=== PATIENT | male | born 1980 | race Caucasian/White ===

== ENCOUNTER 2019-12-15 15:28 | Emergency (ER) | payer BC, SELFPAY ==
--- NOTE | 2019-12-15 | DI.CT_ITS ---
EXAM: CT CHEST/ABD/PEL W and lumbar spine reconstructions CLINICAL HISTORY: PAIN, S/P FALL WHILE SKIING TECHNIQUE: Images were performed from the clavicles through the ischial tuberosities after 100 cc of Omnipaque 350 IV. COMPARISON: CT LUMBAR SPINE RECONS from 12/15/2019 FINDINGS: There are mild dependent changes at the lung bases. No pneumothorax or displaced rib fracture is see n. The thoracic spine appears intact. The heart and great vessels appear intact. The thoracic spin e and sternum appear intact. There is a compression fracture of the superior endplate L1, mild. The re is no significant retropulsion. The posterior endplates appear intact. No additional spinal frac tures are seen. No pelvic fractures are seen. There is fatty infiltration of the liver. No liver injury is seen. The gallbladder, spleen, pancrea s, adrenals, kidneys and urinary bladder are unremarkable. There is no bowel dilatation, free air, f ree fluid or wall thickening. Aorta is normal in diameter and appears intact. IMPRESSION: Mild, approximally 10 percent, compression fracture of the superior endplate of L1 without significa nt retropulsion. No posterior element involvement.
--- NOTE | 2019-12-15 15:30 | DI.CT_ITS ---
EXAM: CT HEAD CERVICAL SPINE WO CLINICAL HISTORY: pain s/p fall while skiing. TECHNIQUE: Imaging Protocol: Axial computed tomography images with coronal and sagittal reformatted images were created and reviewed Noncontrast COMPARISON: No exams were available for comparison FINDINGS: Head CT Ventricles and Extra axial spaces: Normal in size and morphology for the patient's age. Hemorrhage: None. Cerebral parenchyma: Normal. Midline shift: None. Brainstem/Cerebellum: Normal. Calvarium: Normal. Visualized Paranasal sinuses/Mastoids: Clear. IMPRESSION: Negative head CT. FINDINGS: Cervical Spine CT BONES: Vertebral body heights are maintained. Intervertebral disc spaces are normal. Alignment is nor mal. There is no evidence of acute fracture. SOFT TISSUES: No paraspinal hematoma. The airway appears intact. . IMPRESSION: No acute abnormality. RADIATION DOSE DELIVERED: DATA REPOSITORY: All CT scans at this facility are submitted to the National Radiology Data Registry (NRDR) Dose Index Registry (DIR) with the [employer] ([employer]). RADIATION OPTIMIZATION: All CT scans at this facility use at least one of these dose optimization te chniques: automated exposure control; mA and/or kV adjustment per patient size (includes targeted exa ms where dose is matched to clinical indication); or iterative reconstruction.
--- NOTE | 2019-12-15 15:45 | ED.GENADUL_ITS ---
Discharge Plan Disposition Patient Disposition: HOME Condition: Stable Discharge Details Chief Complaint: Trauma Clinical Impression: Blunt head trauma, Cervical strain, Blunt chest trauma, Blunt abdominal trauma, Closed compression fracture of L1 vertebra Primary Care Provider: Julienne,Local ED Provider: Fitz Thomas Home Meds and New Rx's Prescriptions: New oxycodone 5 mg tablet 5 mg PO Q8H PRN (Reason: pain) Qty: 12 RF: 0 Discharge Instructions Instructions: Vertebral Compression Fracture (ED) Additional Instructions: take 1000mg tylenol and 600mg ibuprofen every 6 hours for pain as needed if you need additional pain relief take 1 oxycodone, do not drink alcohol or drive if you take this medicine if you have severe worsening pain or new worsening pain such as abdominal pain or chest pain return to the emergency department Medical Decision Making 39 yo male with hx of htn and malignant hyperthermia, comes in after he was wearing a helmet skiing and thought he was going over a hill but it was a jump so he went an unknown heigh in the air and landed on his back. Denies loc but has headache, left anterior chest tenderness, left upper abdominal pain and tenderness without guarding and has midline L spine pain without palpable deformiteis or stepoffs and no pain in the extremities. Given mechanism and areas of pain will obtain ct head/c spine and also chest/abd/pelvis with L spine reconstructions pt remains stable, ct's only show L1 mild compression fx. No new pain on exam. Will d/c on pain meds and advised to f/u with pcp when he returns to [place] next week, return precautions given Differential Diagnosis Differential Diagnosis: tbi, rib fracture, ptx, splenic injury, l spine injury Imaging Data Radiologic Study: Attestation: I personally reviewed and interpreted this imaging study as follows: Imaging: CT Scan Radiologist's impression: negative ct head and c spine negative ct thorax ct abdomen and lumbar spine show l1 compression fx Lab Data Lab results reviewed: Yes I reviewed the patient's lab results. HPI General Mode of arrival: EMS . Date/Time Provider Initiated Documentation: 12/15/19 15:41 . Limitations to Documentation: no limitations . Information obtained by: patient . History of Present Illness 39 year old M presents to the emergency department with the chief complaint of back pain, described as moderate, Quality is described as aching, and is localized to the back. Patient started experiencing this hour(s) (1) and it has been constant. No relieving factors improve symptom(s), No exacerbating factors reported . Patient did receive the following treatments prior to arrival, none Related Data Home Medications Medication Instructions Recorded Confirmed oxycodone 5 mg PO Q8H PRN #12 tab 12/15/19 Previous Rx's Medication Instructions Recorded oxycodone 5 mg PO Q8H PRN #12 tab 12/15/19 Review of Systems All systems reviewed & are unremarkable except as noted in HPI and below Constitutional Constitutional: Denies chills, Denies fever(s) and Denies weakness Cardiovascular Cardiovascular: Denies dyspnea Respiratory Respiratory: Denies cough and Denies dyspnea Gastrointestinal Gastrointestinal: Denies nausea and Denies vomiting Musculoskeletal Musculoskeletal: Denies joint swelling Neurologic Neurologic: Denies weakness [facility] Medical History (Updated 12/15/19 @ 17:19 by Fitz Thomas MD) Hypertension (Chronic) Malignant hyperthermia (Acute) Social History Smoking/Tobacco Use Status: Never Alcohol Intake: current Alcohol Intake frequency: a few times a month Substance use type: does not use Do you feel safe at home: Yes Do you feel safe in your relationship?: Yes Exam Const General: no acute distress Orientation: alert HENMT Head: normal to inspection Ears: external ears normal General nose exam: external nose normal Mouth: moist mucous membranes Eyes General: appearance normal, both eyes and all related structures Neck Neck: normal visual inspection Chest Chest: no crepitus and No rash Resp Effort & Inspection: normal respiratory effort and able to speak in complete sentences Cardio Rate: regular rate GI Palpation: soft Skin General skin exam: no rashes or lesions noted Neuro General: alert and oriented x3 Extrem General: normal to inspection Psych Mental Status: mental status grossly normal
[2019-12-15] MEDS: Normal Saline 1,000 ML 1000 ML IV (15:56)
[2019-12-15] MEDS: fentaNYL 100 MCG/2 ML VIAL IVP (15:58)
[2019-12-15 16:00] LABS: Abs Immature Grans 0.11 k/cumm (0.0-0.09); Absolute Basophil Count 0.04 k/cumm (0.0-0.2); Absolute Eosinophil Count 0.13 k/cumm (0.0-0.7); Absolute Lymphocyte Count 3.17 k/cumm (1.2-3.4); Absolute Monocyte Count 1.33 k/cumm (0.11-0.7); Absolute Neutrophil Count 10.12 k/cumm (1.2-6.7); Basophils % 0.3; Eosinophils % 0.9; HCT 47.1 % (40.0-50.0); Immature Grans % 0.7 %; Lymphocytes % 21.3; Mean Corpuscular Hemoglobin 31.3 pg (27.0-33.0); Mean Corpuscular Volume 92.2 fL (80-95); Mean Platelet Volume 9.8 fL (8.0-11.0); Monocytes % 8.9; Neutrophils % 67.9; Platelet Count 287 x1000/uL (130-400); RBC 5.11 m/cumm (4.50-6.00); RBC Distribution Width 13.3 % (11.8-14.1)
[2019-12-15 16:03] VITALS: BP 147/89; PULSE 85; RESP 18; TEMP 36.7; O2SAT 97
[2019-12-15 16:10] LABS: ALT 61 U/L (16-63); AST 43 U/L (15-37); Albumin 4.4 g/dL (3.4-5.0); Alkaline Phosphatase 96 U/L (46-116); BUN 13 mg/dL (7-18); Bilirubin, Total 0.3 mg/dL (0.2-1.0); CREATININE 1.23 mg/dL (0.70-1.30); Calcium 9.3 mg/dL (8.5-10.1); Chloride 106 mmol/L (98-107); Glucose 103 mg/dL (74-106); Lipase 120 U/L (73-393); Magnesium 2.4 mg/dL (1.8-2.4); Potassium 4.1 mmol/L (3.5-5.1); Sodium 143 mmol/L (136-145); Total Protein 7.6 g/dL (6.4-8.2)
[2019-12-15 16:11] LABS: PTT Activated 22.9 sec (21.0-31.4); Prothrombin Time 9.8 sec (9.3-11.0)
[2019-12-15] MEDS: Omnipaque 350 MG/ML 100 ML BTL IJ (16:22)
[2019-12-15] MEDS: Normal Saline - Diluent 50 ML VIAL IV (16:23)
[2019-12-15 16:33] VITALS: BP 139/80; PULSE 102; RESP 16; TEMP 36.1
--- NOTE | 2019-12-15 16:44 | DI.VRAD_ITS ---
PROCEDURE INFORMATION: Exam: CT Head Without Contrast Exam date and time: 12/15/2019 4:10 PM Age: 39 years old Clinical indication: Injury or trauma; Initial encounter; Blunt trauma (contusions or hematomas); Consciousness not specified; Injury date: 12/15/19; Injury details: S/P fall while skiing. TECHNIQUE: Imaging protocol: Computed tomography of the head without contrast. Radiation optimization: All CT scans at this facility use at least one of these dose optimization techniques: automated exposure control; mA and/or kV adjustment per patient size (includes targeted exams where dose is matched to clinical indication); or iterative reconstruction. COMPARISON: No relevant prior studies available. FINDINGS: Brain: No intracranial hemorrhage or extra-axial fluid collection. No evidence of mass effect or midline shift. Etienne-white matter differentiation is intact. Ventricles: No ventriculomegaly. Bones/joints: No acute osseus lesion or fracture. Sinuses: Unremarkable as visualized. Mastoid air cells: Unremarkable. Soft tissues: Unremarkable. IMPRESSION: No acute intracranial pathology. PROCEDURE INFORMATION: Exam: CT Cervical Spine Without Contrast Exam date and time: 12/15/2019 4:10 PM Age: 39 years old Clinical indication: Injury or trauma; Initial encounter; Blunt trauma (contusions or hematomas); Consciousness not specified; Injury date: 12/15/19; Injury details: S/P fall while skiing. TECHNIQUE: Imaging protocol: Computed tomography images of the cervical spine without contrast. Radiation optimization: All CT scans at this facility use at least one of these dose optimization techniques: automated exposure control; mA and/or kV adjustment per patient size (includes targeted exams where dose is matched to clinical indication); or iterative reconstruction. COMPARISON: No relevant prior studies available. FINDINGS: Vertebrae: The cervical lordosis is normal. Vertebral body heights are maintained. No locked or perched facets. No acute cervical spine fracture. The dens is intact. Atlantoaxial intervals are normal. Discs/Spinal canal/Neural foramina: Disc space heights are normal. Soft tissues: Unremarkable. Lungs: Lung apices are clear. IMPRESSION: No acute cervical spine fracture. Dictated and Authenticated by: Bud Reed MD. Ordering:CATHERINE Byrnes MD
--- NOTE | 2019-12-15 16:46 | DI.VRAD_ITS ---
PROCEDURE INFORMATION: Exam: CT Lumbar Spine Without Contrast Exam date and time: 12/15/2019 4:22 PM Age: 39 years old Clinical indication: Low back pain; Patient HX: Fall while skiing TECHNIQUE: Imaging protocol: Computed tomography images of the lumbar spine without contrast. Radiation optimization: All CT scans at this facility use at least one of these dose optimization techniques: automated exposure control; mA and/or kV adjustment per patient size (includes targeted exams where dose is matched to clinical indication); or iterative reconstruction. COMPARISON: No relevant prior studies available. FINDINGS: Vertebrae: Acute mild compression fracture of the superior endplate of L1 with approximately 10% loss of height. No osseous retropulsion. Lumbar lordosis is preserved. No measurable spondylolisthesis. Discs/Spinal canal/Neural foramina: Disc space heights are intact. No significant spinal stenosis. Soft tissues: Unremarkable. IMPRESSION: Acute mild compression fracture of the superior endplate of L1. Dictated and Authenticated by: Bud Reed MD. Ordering:CATHERINE Byrnes MD
--- NOTE | 2019-12-15 16:48 | DI.VRAD_ITS ---
PROCEDURE INFORMATION: Exam: CT Chest With Contrast Exam date and time: 12/15/2019 4:22 PM Age: 39 years old Clinical indication: Chest wall pain; Patient HX: S/P fall while skiing, patient complains of left sided rib pain TECHNIQUE: Imaging protocol: Computed tomography of the chest with intravenous contrast. Radiation optimization: All CT scans at this facility use at least one of these dose optimization techniques: automated exposure control; mA and/or kV adjustment per patient size (includes targeted exams where dose is matched to clinical indication); or iterative reconstruction. Contrast material: OMNIPAQUE 350; Contrast volume: 100 ml; Contrast route: IV; COMPARISON: No relevant prior studies available. FINDINGS: Lungs: Mild bibasilar dependent atelectasis of the lung bases. Pleural space: No pleural effusion or pneumothorax. Heart: Unremarkable. No pericardial effusion. Aorta: Unremarkable. Lymph nodes: No enlarged lymph nodes. Bones/joints: No acute osseus lesion or fracture. Soft tissues: Unremarkable. IMPRESSION: No acute findings in the thorax. PROCEDURE INFORMATION: Exam: CT Abdomen And Pelvis With Contrast Exam date and time: 12/15/2019 4:22 PM Age: 39 years old Clinical indication: Chest wall pain; Patient HX: S/P fall while skiing, patient complains of left sided rib pain TECHNIQUE: Imaging protocol: Computed tomography of the abdomen and pelvis with intravenous contrast. Radiation optimization: All CT scans at this facility use at least one of these dose optimization techniques: automated exposure control; mA and/or kV adjustment per patient size (includes targeted exams where dose is matched to clinical indication); or iterative reconstruction. Contrast material: OMNIPAQUE 350; Contrast volume: 100 ml; Contrast route: IV; COMPARISON: No relevant prior studies available. FINDINGS: Liver: Unremarkable. Gallbladder and bile ducts: Unremarkable. No ductal dilation. Pancreas: Unremarkable. No ductal dilation. Spleen: Unremarkable. Adrenals: Unremarkable. Kidneys and ureters: No hydronephrosis or stones. Stomach and bowel: Stomach is unremarkable. No small bowel obstruction. Large bowel is unremarkable. Appendix: No evidence of appendicitis. Intraperitoneal space: No pneumoperitoneum. No significant fluid collection. Vasculature: Unremarkable. Lymph nodes: No enlarged lymph nodes. Bladder: Unremarkable. Reproductive: Unremarkable as visualized. Bones/joints: Acute mild compression fracture of the superior endplate of L1. Soft tissues: Small fat containing umbilical hernia. Small fat containing right inguinal hernia. IMPRESSION: Acute mild compression fracture of the superior endplate of L1. Dictated and Authenticated by: Bud Reed MD. Ordering:CATHERINE Byrnes MD
[2019-12-15 17:19] VITALS: BP 124/82; PULSE 88; RESP 15; TEMP 36.3; O2SAT 99
[2019-12-15] MEDS: HYDROmorphone 2 MG/ML VIAL 1 MG IVP (17:27)
[2019-12-15] MEDS: Ondansetron O.D.T. 4 MG TABEF PO (18:06)
--- NOTE | 2019-12-15 18:07 | NUR.NOTE ---
Assisted to semi fowlers, pt feeling nauseous and laid back down in bed. MD plascencia, ODT ordered and administered. pt pale. BP 124/78. given apple juice and resting with bed elevated, feet over side of stretcher.
[2019-12-15 18:09] VITALS: BP 128/78; PULSE 87; RESP 14; O2SAT 98
[2019-12-15 18:11] VITALS: BP 128/78; PULSE 87; RESP 14; O2SAT 98
--- NOTE | 2019-12-15 18:47 | NUR.NOTE ---
Assisted to BR in wheelchair, pt voided and ambulated back to room with assist. reports nausea subsided and pt feels better
[2019-12-15 18:52] VITALS: BP 124/78; PULSE 87; RESP 16; O2SAT 98
== END 2019-12-15 18:50 | disposition home or self-care (01) ==
PROVIDERS: Emergency Provider Emergency Medicine
DX: S32.019A Unspecified fracture of first lumbar vertebra, initial encounter for closed fracture (principal); S16.1XXA Strain of muscle, fascia and tendon at neck level, initial encounter; S09.8XXA Other specified injuries of head, initial encounter; S29.8XXA Other specified injuries of thorax, initial encounter; S39.81XA Other specified injuries of abdomen, initial encounter; V00.321A Fall from snow-skis, initial encounter; Y93.23 Activity, snow (alpine) (downhill) skiing, snowboarding, sledding, tobogganing and snow tubing; I10 Essential (primary) hypertension
CPT/HCPCS: 74177; 80053; 83690; 96361; 96374; 96375; 99285; 70450; 71260; 72125; 83735; 85025; 85610; 85730; J3010; J3490

== ENCOUNTER 2022-03-29 21:48 | Emergency (ER) | payer BC, SELFPAY ==
[2022-03-29 21:52] VITALS: BP 153/86; PULSE 88; RESP 14; TEMP 36.6; O2SAT 99
--- NOTE | 2022-03-29 22:00 | DI.RAD_ITS ---
Exam(s) XR FINGER LT RING EXAM: XR FINGER LT RING CLINICAL HISTORY: injury to PIP. TECHNIQUE: 2D digital imaging was performed. COMPARISON: No exams were available for comparison FINDINGS: 3 views No evidence of acute fracture nor dislocation. Subtle linear lucency in the middle phalanx of the 4t h finger is probably a nutrient artery canal, as opposed to a nondisplaced fracture line. No radiopaque foreign body. IMPRESSION: No obvious fracture. DATA REPOSITORY: RADIATION DOSE DELIVERED:
--- NOTE | 2022-03-29 23:05 | DI.VRAD_ITS ---
PROCEDURE INFORMATION: Exam: XR Left Finger(s) Exam date and time: 03/29/2022 10:28 PM Age: 41 years old Clinical indication: Other: Injury to pip TECHNIQUE: Imaging protocol: XR Left fingers. Views: Minimum 2 views. COMPARISON: No relevant prior studies available. FINDINGS: Bones/joints: No fracture or dislocation. Soft tissues: Soft tissue swelling of mild degree of the left 4th finger. No foreign body or soft tissue gas. IMPRESSION: 1. No fracture or dislocation. 2. No soft tissue gas or foreign body. Dictated and Authenticated by: Medardo Smiental MD. Ordering:BABITA Kim MD
--- NOTE | 2022-03-29 23:11 | ED.GENADUL_ITS ---
Discharge Plan Disposition Patient Disposition: HOME Condition: Stable Discharge Details Clinical Impression: Sprain of finger of left hand Primary Care Provider: Julienne,Local ED Provider: Julio Curiel Home Meds and New Rx's Prescriptions: No Action oxycodone 5 mg tablet 5 mg PO Q8H PRN (Reason: pain) Qty: 12 0RF ondansetron 4 mg tablet,disintegrating 4 mg PO Q8H PRN (Reason: nausea and vomiting) Qty: 20 0RF bisoprolol fumarate 5 mg Tablet 5 mg PO DAILY pantoprazole 40 mg Tablet,Delayed Release (Dr/Ec) 40 mg PO BID naproxen sodium [Aleve] 220 mg Tablet 220 mg PO BID PRN loratadine 10 mg Tablet 10 mg PO DAILY melatonin 5 mg Tablet 5 mg PO HS PRN Discharge Instructions Instructions: Finger Sprain (ED) Additional Instructions: You may continue to take [id number] pain medication as needed and use the provided finger splint for comfort measures. As pain starts to subside you may slowly increase use of digit as tolerated by discomfort. If not improving over the next 1 to 2 weeks please follow-up with orthopedist for reassessment and further interventions as needed. Referrals: [facility] [Provider Group] - 2 weeks (If not Improving) Discharge Data Discharge Date/Time-TO BE ENTERED AT DEPARTURE: 03/29/22 23:26 Medical Decision Making Patient presenting to the emergency department for chief complaint of left ring finger injury. Patient states he previously fractured this finger. Tonight he was attempting to close a window when he struck his finger causing significant pain to the PIP physical exam shows a slight amount of ecchymosis to left fourth digit PIP with discomfort to passive range of motion also to PIP. Two-point discrimination is intact along with cap refill. No other injury or trauma is noted. We will plan on performing radiological imaging to rule out fracture versus dislocation. Patient denies any need for pain medication at this time. Review of radiological imaging and radiologist interpretation shows no acute findings. Suspect ligamentous injury so will place patient in finger splint and have patient follow-up with orthopedist if not improving in the next 1 to 2 weeks. After discussion of diagnosis and plan of care patient has no further needs, questions, or concerns and states clear understanding to return to the emergency department for any worsening symptoms. Imaging Data Radiologic Study: Imaging: X-Ray Radiologist's impression: IMPRESSION: 1. No fracture or dislocation. 2. No soft tissue gas or foreign body. HPI General Mode of arrival: ambulatory . Date/Time Provider Initiated Documentation: 03/29/22 22:09 . Limitations to Documentation: no limitations . Information obtained by: patient and RN notes reviewed . History of Present Illness 41 year old M presents to the emergency department with the chief complaint of left ring finger injury, described as moderate, with intensity rated at 7. Quality is described as aching, and is localized to the left and upper extremity. Patient reports no radiation. Patient started experiencing this hour(s) (1) and it has been constant. Immobilization improves symptom(s), Movement worsens symptoms . Patient notes no other symptoms.. Patient did receive the following treatments prior to arrival, none Related Data Home Medications Medication Instructions Recorded Confirmed ondansetron 4 mg disintegrating 4 mg PO Q8H PRN nausea and 12/15/19 tablet vomiting #20 tabs oxycodone 5 mg tablet 5 mg PO Q8H PRN pain #12 tabs 12/15/19 bisoprolol fumarate 5 mg tablet 5 mg PO DAILY 03/29/22 03/29/22 loratadine 10 mg tablet 10 mg PO DAILY 03/29/22 03/29/22 melatonin 5 mg tablet 5 mg PO HS PRN 03/29/22 03/29/22 naproxen sodium 220 mg tablet 220 mg PO BID PRN 03/29/22 03/29/22 (Aleve) pantoprazole 40 mg tablet,delayed 40 mg PO BID 03/29/22 03/29/22 release Previous Rx's Medication Instructions Recorded ondansetron 4 mg disintegrating 4 mg PO Q8H PRN nausea and 12/15/19 tablet vomiting #20 tabs oxycodone 5 mg tablet 5 mg PO Q8H PRN pain #12 tabs 12/15/19 Allergies Allergy/AdvReac Type Severity Reaction Status Date / Time Inhaled Anesthetics (Halogen Allergy Severe Other (See Unverified 03/29/22 21:56 Based) Comment) Penicillins Allergy Intermediate Swelling/Ed Unverified 03/29/22 21:56 mitzy General Stated Complaint: Orthopedic MARCOS: 4 Review of Systems Narrative: 6 systems reviewed and are unremarkable except for as noted in HPI and below Musculoskeletal Musculoskeletal: Reports as per HPI, Denies deformity, Reports arthralgias, Denies joint swelling, Reports limited range of motion, Denies numbness and Denies tingling Integumentary/Breasts Skin/Breast: Denies erythema Neurologic Neurologic: Denies numbness and Denies tingling PFSH All Active Problems (Updated 03/29/22 @ 23:17 by Julio Curiel NP) Blunt head trauma (Acute) Cervical strain (Acute) Blunt chest trauma (Acute) Blunt abdominal trauma (Acute) Closed compression fracture of L1 vertebra (Acute) Sprain of finger of left hand (Acute) Medical History (Updated 03/29/22 @ 23:17 by Julio Curiel NP) Hypertension Malignant hyperthermia Social History Smoking/Tobacco Use Status: Never Smoking risk assessment performed?: Yes Alcohol Intake: current Alcohol Intake frequency: holidays/special occasions only Alcohol type: beer Drug use: Never Substance use type: does not use Do you feel safe at home: Yes Do you feel safe in your relationship?: Yes Exam Const General: cooperative, no acute distress and not ill appearing Orientation: alert, awake and oriented x3 Resp Effort & Inspection: normal respiratory effort, able to speak in complete sentences and no respiratory distress Cardio Rate: regular rate Rhythm: regular rhythm Pulses: radial pulses present Skin General skin exam: no rashes or lesions noted Neuro General: patient alert, patient awake, patient oriented x3, moves all extremities and no focal motor deficits Sensory Exam: no sensory deficits noted Extrem General: normal exam except as noted Left upper extremity: hand Details: neuromotor exam normal, neurosensory exam normal, tenderness Location: of the 4th digit Location: at the PIP joint, abnormal ROM of finger Details: pain with passive ROM Location: of the 4th digit and no swelling Course Vital Signs Vital signs: Vital Signs Temperature 36.6 C 03/29/22 21:52 Pulse 88 03/29/22 21:52 Respiratory Rate 14 03/29/22 21:52 Blood Pressure 153/86 H 03/29/22 21:52 Pulse Oximetry 99 03/29/22 21:52 Temperature 36.6 C 03/29/22 21:52 Temperature Source Skin 03/29/22 21:52 Pulse 88 03/29/22 21:52 Respiratory Rate 14 03/29/22 21:52 Respiratory Effort Non-Labored 03/29/22 21:59 Blood Pressure 153/86 H 03/29/22 21:52 Blood Pressure Position Sitting 03/29/22 21:52 Pulse Oximetry 99 03/29/22 21:52 Oxygen Delivery Method Room Air 03/29/22 21:52 Oxygen Flow Rate 0 03/29/22 21:52 Pain Level 7 03/29/22 21:59 PAWSS Have you Been Recently Intoxicated or Drunk Within the Last 30 days?: No Have you Ever Experienced Previous Episodes of Alcohol Withdrawal?: No Have you ever Experienced Withdrawal Seizures?: No Have you ever Experienced Delirium Tremens(DT)s?: No Have you ever undergone Alcohol Rehabilitation Treatment (i.e, inpt ot outpatient treatment programs)?: No Have you ever Experienced Blackouts?: No Have you ever Combined Alcohol with other Downers within the last 90 days?: No Have you ever Combined Alcohol with any other Substance of Abuse during the last 90 days?: No Positive Blood Alcohol level on Presentation? [PCS.BAL]: No Evidence of Increased Autonomic Activity (i.e. HR>120, tremor, sweating, agitation, nausea)?: No Result: 0
[2022-03-29 23:27] VITALS: BP 153/86; PULSE 88; RESP 14; TEMP 36.6; O2SAT 99
== END 2022-03-29 23:26 | disposition home or self-care (01) ==
PROVIDERS: Emergency Provider Nurse Practitioner Family
DX: S63.695A Other sprain of left ring finger, initial encounter (principal); W22.09XA Striking against other stationary object, initial encounter
CPT/HCPCS: 99283; 73140